=== PATIENT | male | born 1975 ===

== ENCOUNTER 2018-03-12 08:53 | Outpatient (CLI) | payer OTHER | END 2018-03-12 08:54 | disposition home or self-care (01) | LOC: C.LAB 08:53 | DX: E11.9 Type 2 diabetes mellitus without complications (principal) ==

== ENCOUNTER 2018-03-13 08:55 | Outpatient (CLI) | payer SELFPAY | END 2018-03-13 08:56 | disposition home or self-care (01) | LOC: C.CARD 08:55 | DX: F17.200 Nicotine dependence, unspecified, uncomplicated (principal) ==

== ENCOUNTER → 2018-06-11 | Outpatient (CLI) | payer SELFPAY | LOC: C.LAB 11:37 | DX: E11.9 Type 2 diabetes mellitus without complications (principal) ==